=== PATIENT | female | born 1960 | race African-American/Black ===

== ENCOUNTER → 2017-11-16 | Outpatient (CLI) | payer MEDICARE, MEDICAID ==
[~2017-11-16] MED LIST: AZAT50TA24 PO; BARIUM SULFATE 450ML ORAL SUSP ONE; CINA30 PO; IOHEXOL-300 100 ML BOTTLE ONE; LETROZOLE PO; METO25TA6 PO; OMEP20TA2 PO; P20 PO; PENTASA PO; XALAO EACHEYE
== END | disposition home or self-care (01) ==
LOC: CT 07:27
PROVIDERS: ATTEND Surgery
DX: K80.20 Calculus of gallbladder without cholecystitis without obstruction (principal); I10 Essential (primary) hypertension; Z90.49 Acquired absence of other specified parts of digestive tract
CPT/HCPCS: 74177; 94640; Q9967

== ENCOUNTER → 2017-12-20 | Outpatient (CLI) | payer MEDICARE, MEDICAID ==
[~2017-12-20] MED LIST changes: -BARIUM SULFATE 450ML ORAL SUSP ONE; -IOHEXOL-300 100 ML BOTTLE ONE
[2017-12-24 13:10] LABS: ANTI-MYELOPEROXIDASE AB < 9.0 U/mL (0.0-9.0); ANTI-PROTEINASE 3 ABS < 3.5 U/mL (0.0-3.5)
[2017-12-25 13:07] LABS: SACCHAROMYCES CEREVISIAE IGG <20.0 Units (0.0-24.9); SACCHAROMYCES CEREVISIAE IGM <20.0 Units (0.0-24.9)
[2017-12-26 14:19] LABS: ATYPICAL P-ANCA <1:20 titer (Neg:<1:20); ATYPICAL pANCA <1:20 titer (Neg:<1:20); CYTOPLASMIC C-ANCA <1:20 titer (Neg:<1:20); PERINUCLEAR P-ANCA <1:20 titer (Neg:<1:20)
== END | disposition home or self-care (01) ==
LOC: LAB 12:35
PROVIDERS: ATTEND Internal Medicine Gastroenterology
DX: I10 Essential (primary) hypertension (principal); R10.9 Unspecified abdominal pain; K57.12 Diverticulitis of small intestine without perforation or abscess without bleeding; K57.30 Diverticulosis of large intestine without perforation or abscess without bleeding
CPT/HCPCS: 36415; 83520; 85651; 86140; 86256; 86671

== ENCOUNTER 2021-08-08 16:29 | Inpatient (IN) | payer MEDICARE, MEDICAID ==
[~2021-08-08] VITALS: Ht 170.2 cm; Wt 102.1 kg
[2021-08-08] MEDS ORDERED: MORPHINE SULFATE 4 MG/ML CPJ (NOT FOR IM USE) IV STA (18:42)
[2021-08-08] MEDS ORDERED: ONDANSETRON HCL 4MG/2ML INJ IV STA (18:42)
[2021-08-08 18:44] LABS: CLARITY URINE CLEAR (CLEAR); COLOR URINE DARK YELLOW (YELLOW); KETONES URINE 1+ (NEGATIVE); LEUKOCYTE ESTERASE URINE 1+ (NEGATIVE); NITRITE URINE NEGATIVE (NEGATIVE); OCCULT BLOOD URINE NEGATIVE (NEGATIVE); PH URINE 5.5 (4.5-8.0); PROTEIN URINE 3+ (NEGATIVE); SPECIFIC GRAVITY URINE 1.027 (1.005-1.030)
[2021-08-08] MEDS ORDERED: SODIUM CHLORIDE 0.9% 1,000 ML IV ONE (18:45)
[2021-08-08] MEDS ORDERED: ONDANSETRON HCL 4MG/2ML INJ IV NR (19:30)
[2021-08-08] MEDS ORDERED: NALOXONE HCL 0.4MG/ML VIAL IV PRN (19:30)
[2021-08-08] MEDS ORDERED: MORPHINE SULFATE 4 MG/ML CPJ (NOT FOR IM USE) IV NR (19:30)
[2021-08-08] MEDS ORDERED: PIPERACILLIN/TAZ 3.375G PREMIX 50 ML IV ONE (20:45)
[2021-08-08 23:01] LABS: BASOPHILS % 0.4 % (0.0-2.0); HEMATOCRIT. 37.6 % (36.0-48.0); HEMOGLOBIN. 12.2 g/dL (12.0-16.0); MEAN CORPUSCULAR HEMOGLOBIN 24.9 pg (28.0-32.0); MEAN CORPUSCULAR VOLUME 76.8 fL (81.0-99.0); MONOCYTES % 13.5 % (2.0-8.0); NEUTROPHILS % 74.1 % (40.0-76.0); PLATELET 451 x1000/uL (130-400); RED CELL DISTRIBUTION WIDTH 17.4 % (11.6-14.6)
[2021-08-08 23:15] LABS: CHLORIDE 104 mEq/L (98-107)
[2021-08-08] MEDS ORDERED: PIPERACILLIN/TAZ 3.375G PREMIX 50 ML IV SCH (23:30)
[2021-08-09 09:06] VITALS: BP 127/88
[2021-08-09] MEDS ORDERED: ONDANSETRON HCL 4MG/2ML INJ IV PRN (11:00)
[2021-08-09] MEDS ORDERED: PIPERACILLIN/TAZ 3.375G PREMIX 50 ML IV SCH (11:00)
[2021-08-09] MEDS ORDERED: ACETAMINOPHEN 325MG TABLET PO PRN (11:00)
[2021-08-09] MEDS ORDERED: ZOLPIDEM TARTRATE 5MG TABLET PO PRN (11:00)
[2021-08-09 12:00] VITALS: BP_SYST 120; BP_SYST 141; BP_DIAS 76; BP_DIAS 98
[2021-08-09] MEDS ORDERED: DOCUSATE SODIUM 250MG CAPSULE PO NR (14:00)
[2021-08-09] MEDS ORDERED: NALOXONE HCL 0.4MG/ML VIAL IV PRN (14:15)
[2021-08-09] MEDS: PIPERACILLIN/TAZOBACTAM 3.375G in DEXT 5% WATER 50ML IV SCH ×2 (14:18→21:40)
[2021-08-09] MEDS: DEXT 5%/0.45% NACL KCL 20MEQ/L 1,000 ML IV SCH (14:18)
[2021-08-09] MEDS: ENOXAPARIN 40MG/0.4ML SYR SUBCUT SCH (14:19)
[2021-08-09 16:00] VITALS: BP 133/82
[2021-08-09 20:00] VITALS: BP 129/80
[2021-08-09] MEDS: ATORVASTATIN CALCIUM 10MG TABLET PO SCH (21:40)
[2021-08-09] MEDS: METOPROLOL TARTRATE 25MG TABLET PO SCH (21:40)
[2021-08-10] VITALS: BP 95/57
[2021-08-10] MEDS: DEXT 5%/0.45% NACL KCL 20MEQ/L 1,000 ML IV SCH ×2 (02:21→13:04)
[2021-08-10 05:33] LABS: HEMATOCRIT. 34.6 % (36.0-48.0); HEMOGLOBIN. 11.3 g/dL (12.0-16.0); MEAN CORPUSCULAR HEMOGLOBIN 25.2 pg (28.0-32.0); MEAN CORPUSCULAR VOLUME 76.8 fL (81.0-99.0); PLATELET 345 x1000/uL (130-400); RED CELL DISTRIBUTION WIDTH 17.3 % (11.6-14.6)
[2021-08-10] MEDS: PIPERACILLIN/TAZOBACTAM 3.375G in DEXT 5% WATER 50ML IV SCH ×3 (05:34→22:40)
[2021-08-10 05:41] LABS: CHLORIDE 106 mEq/L (98-107)
[2021-08-10 05:41] LABS: INR 1.2; PROTHROMBIN TIME 12.3 sec (9.6-11.0)
[2021-08-10 05:54] LABS: HDL CHOLESTEROL 47 mg/dL (40-59); LDL CHOLESTEROL 34 mg/dL (5-100); TOTAL IRON BINDING CAPACITY 321 ug/dL (250-450)
[2021-08-10 06:08] LABS: FOLIC ACID (FOLATE) SERUM 8.5 ng/mL (>5.38)
[2021-08-10 08:00] VITALS: BP 112/76
[2021-08-10] MEDS ORDERED: FAMOTIDINE 20MG/2ML VIAL IV SCH (09:00)
[2021-08-10] MEDS ORDERED: POTASSIUM CHLORIDE 20MEQ TABLET SR PO NR (09:30)
[2021-08-10] MEDS: DOCUSATE SODIUM 250MG CAPSULE PO SCH (09:50)
[2021-08-10] MEDS: METOPROLOL TARTRATE 25MG TABLET PO SCH ×2 (09:50→21:00)
[2021-08-10 12:00] VITALS: BP 109/69
[2021-08-10] MEDS: ENOXAPARIN 40MG/0.4ML SYR SUBCUT SCH (13:04)
[2021-08-10 16:00] VITALS: BP 115/71
[2021-08-10] MEDS: POTASSIUM CHLORIDE 20MEQ TABLET SR PO SCH (17:02)
[2021-08-10] MEDS: IRON SUCROSE COMPLEX 100 MG/5 ML ML IV SCH (17:02)
[2021-08-10] MEDS: MORPHINE SULFATE 2 MG/ML CPJ (NOT FOR IM USE) IV PRN ×2 (17:10→22:35)
[2021-08-10 20:00] VITALS: BP 118/69
[2021-08-10] MEDS: FAMOTIDINE 20MG TABLET PO SCH (22:35)
[2021-08-10] MEDS: ATORVASTATIN CALCIUM 10MG TABLET PO SCH (22:40)
[2021-08-10 22:49] LABS: PLATELET ESTIMATE NORMAL
[2021-08-11] VITALS: BP 138/77
[2021-08-11 04:00] VITALS: BP 122/65
[2021-08-11] MEDS: DEXT 5%/0.45% NACL KCL 20MEQ/L 1,000 ML IV SCH ×2 (05:51→19:03)
[2021-08-11] MEDS: POTASSIUM CHLORIDE 20MEQ TABLET SR PO SCH ×2 (05:51→19:02)
[2021-08-11] MEDS: PIPERACILLIN/TAZOBACTAM 3.375G in DEXT 5% WATER 50ML IV SCH ×3 (05:51→21:32)
[2021-08-11 06:56] LABS: HEMATOCRIT. 33.5 % (36.0-48.0); HEMOGLOBIN. 10.6 g/dL (12.0-16.0); MEAN CORPUSCULAR HEMOGLOBIN 24.9 pg (28.0-32.0); MEAN CORPUSCULAR VOLUME 78.4 fL (81.0-99.0); MEAN PLATELET VOLUME 8.7 fl (7.4-10.4); PLATELET 312 x1000/uL (130-400); RED BLOOD CELL COUNT 4.27 mill/uL (4.2-5.4); RED CELL DISTRIBUTION WIDTH 17.2 % (11.6-14.6)
[2021-08-11 07:29] LABS: CHLORIDE 104 mEq/L (98-107)
[2021-08-11 08:00] VITALS: BP 119/68
[2021-08-11] MEDS: MORPHINE SULFATE 2 MG/ML CPJ (NOT FOR IM USE) IV PRN ×2 (09:51→21:32)
[2021-08-11] MEDS: FAMOTIDINE 20MG TABLET PO SCH ×2 (09:53→21:22)
[2021-08-11] MEDS: DOCUSATE SODIUM 250MG CAPSULE PO SCH (09:53)
[2021-08-11] MEDS: METOPROLOL TARTRATE 25MG TABLET PO SCH ×2 (09:53→21:24)
[2021-08-11] MEDS: ENOXAPARIN 30MG/0.3ML SYR SUBCUT SCH ×2 (09:53→21:26)
[2021-08-11 10:26] LABS: AMYLASE 28 IU/L (25-115)
[2021-08-11 12:00] VITALS: BP 109/73
[2021-08-11 16:00] VITALS: BP 115/75
[2021-08-11 18:02] LABS: PLATELET ESTIMATE NORMAL
[2021-08-11] MEDS: IRON SUCROSE COMPLEX 100 MG/5 ML ML IV SCH (19:03)
[2021-08-11 20:00] VITALS: BP 131/71
[2021-08-11] MEDS: ATORVASTATIN CALCIUM 10MG TABLET PO SCH (21:22)
[2021-08-12] VITALS: BP 125/68
[2021-08-12 04:00] VITALS: BP 120/69
[2021-08-12] MEDS: POTASSIUM CHLORIDE 20MEQ TABLET SR PO SCH (06:03)
[2021-08-12] MEDS: PIPERACILLIN/TAZOBACTAM 3.375G in DEXT 5% WATER 50ML IV SCH (06:03)
[2021-08-12 06:25] LABS: BASOPHILS % 0.5 % (0.0-2.0); HEMATOCRIT. 30.4 % (36.0-48.0); LYMPHOCYTES % 17.8 % (20.0-50.0); MEAN CORPUSCULAR HEMOGLOBIN 25.3 pg (28.0-32.0); MEAN CORPUSCULAR VOLUME 77.1 fL (81.0-99.0); MEAN PLATELET VOLUME 8.3 fl (7.4-10.4); MONOCYTES % 12.5 % (2.0-8.0); NEUTROPHILS % 61.2 % (40.0-76.0); PLATELET 343 x1000/uL (130-400); RED BLOOD CELL COUNT 3.94 mill/uL (4.2-5.4)
[2021-08-12 06:27] LABS: CHLORIDE 105 mEq/L (98-107)
[2021-08-12 08:00] VITALS: BP 128/76
[2021-08-12] MEDS: MORPHINE SULFATE 2 MG/ML CPJ (NOT FOR IM USE) IV PRN (08:26)
[2021-08-12] MEDS: METOPROLOL TARTRATE 25MG TABLET PO SCH (08:28)
[2021-08-12] MEDS: ENOXAPARIN 30MG/0.3ML SYR SUBCUT SCH (08:28)
[2021-08-12] MEDS: FAMOTIDINE 20MG TABLET PO SCH (08:28)
[2021-08-12] MEDS: DOCUSATE SODIUM 250MG CAPSULE PO SCH (08:32)
[2021-08-12] MEDS ORDERED: LEVOFLOXACIN 500MG TABLET PO SCH (11:00)
[2021-08-12 12:00] VITALS: BP 117/77
[2021-08-12 14:37] VITALS: BP 117/77
== END 2021-08-12 15:20 | disposition home health service (06) | DRG 445 ==
LOC: ER 16:29 → MICUSO 22:14 → EDBEDREQTM 22:36 → EDBEDREQ 22:36 → 6EST 08-09 09:10
PROVIDERS: ADMIT Internal Medicine Geriatric Medicine; ATTEND Internal Medicine Geriatric Medicine
DX: K80.00 Calculus of gallbladder with acute cholecystitis without obstruction (principal); K50.90 Crohn's disease, unspecified, without complications; N39.0 Urinary tract infection, site not specified; I10 Essential (primary) hypertension; E78.5 Hyperlipidemia, unspecified; E83.52 Hypercalcemia; D75.839 Thrombocytosis, unspecified; K76.0 Fatty (change of) liver, not elsewhere classified; R16.0 Hepatomegaly, not elsewhere classified; N28.1 Cyst of kidney, acquired; E87.6 Hypokalemia; Z87.891 Personal history of nicotine dependence; Z90.49 Acquired absence of other specified parts of digestive tract; Z79.899 Other long term (current) drug therapy; Z85.3 Personal history of malignant neoplasm of breast; Z87.442 Personal history of urinary calculi
CPT/HCPCS: 36415; 71045; 72070; 72100; 74018; 74176; 76700; 80048; 80053; 80061; 80076; 81003; 82150; 82533; 82607; 82728; 82746; 83540; 83550; 83605; 83735; 85025; 85044; 93005; 93306; 99285; J1650; J2270; J2405; J2543; J3490; J7030; J7060